=== PATIENT | male | born 2000 | race Caucasian/White ===

== ENCOUNTER 2020-07-25 19:22 | Emergency (ER) | payer OTHER, SELFPAY ==
--- NOTE | ~2020-07-25 | CT_ITS ---
EXAMINATION: CT ABDOMEN AND PELVIS WITH CONTRAST CLINICAL INFORMATION: Abdominal pain COMPARISON: None TECHNIQUE: Multidetector volumetric images were obtained from the superior aspect of the liver through the pubic symphysis following administration 85 mL of Omnipaque 350 intravenous contrast. Sagittal and coronal reformatted images were obtained on the technologist's workstation. Oral contrast: No This CT examination was performed using dose optimization techniques as appropriate, variously including the following: *Automated exposure control *Adjustment of mA and/or kV according to patient size (this includes techniques or standardized protocols for targeted exams where dose is matched to indication/reason for exam; i.e. extremities or head) *Use of iterative reconstruction technique DLP: 631 mGy-cm FINDINGS: LUNG BASES: The visualized lung bases are unremarkable. LIVER, GALLBLADDER, AND BILIARY TREE: The liver is mildly enlarged and 19 cm and demonstrates decreased attenuation consistent with hepatic steatosis. There are some areas of focal fatty sparing adjacent to the gallbladder.. No focal hepatic lesion or biliary ductal dilatation is present. The gallbladder is unremarkable with no evidence of radiopaque gallstones, gallbladder wall thickening, or obvious pericholecystic inflammatory changes. PANCREAS: Unremarkable. SPLEEN: Some splenic granulomas are present. ADRENAL GLANDS: Unremarkable. KIDNEYS AND URETERS: The kidneys are normal in size, shape, and attenuation. No hydronephrosis, hydroureter, or calculi seen. No perinephric stranding. BLADDER: Unremarkable. GASTROINTESTINAL TRACT: Some minimal diverticular changes are present without diverticulitis. The small and large bowel are unremarkable. The appendix is unremarkable. ABDOMINAL WALL: No significant hernia is appreciated. LYMPH NODES: No retroperitoneal lymphadenopathy. Small bilateral inguinal nodes are present. VASCULAR: Unremarkable. PELVIC VISCERA: Unremarkable. OSSEOUS STRUCTURES: Unremarkable. CT/CT abdomen pelvis w con IMPRESSION: 1. An etiology for the patient's abdominal pain has not been found. 2. Incidental note made of an enlarged fatty liver, splenic granulomas and colonic diverticulosis
[2020-07-25 19:53] VITALS: BP 119/61; PULSE 69; RESP 18; TEMP 36.9; O2SAT 97; BMI 29.9
[2020-07-25 20:47] LABS: MANUAL DIFF FLAG NO
[2020-07-25 20:49] LABS: Basophils Percent Auto 0.3 % (0-2); Eosinophils Absolute Auto 0.1 X10*3/uL (0.0-0.4); Eosinophils Percent Auto 0.4 % (0-4); Hematocrit 45.5 % (42-52); Hemoglobin 15.6 g/dl (14.0-18.0); Imm Gran Abs Auto 0.03 X10*3/uL (0.00-0.03); Imm Gran Pct Auto 0.3 % (0.0-0.4); Lymphocytes Absolute Auto 1.8 X10*3/uL (1.2-4.9); Lymphocytes Percent Auto 15.4 % (20-40); Mean Corpuscular HGB Conc 34.3 g/dl (31.0-36.0); Mean Corpuscular Hemoglobin 30.5 pg (27.0-33.0); Mean Corpuscular Volume 88.9 fL (80-98); Mean Platelet Volume 10.6 fL (9.4-12.4); Monocytes Absolute Auto 0.9 X10*3/uL (0.1-1.2); Monocytes Percent Auto 7.5 % (2-11); Neutrophils Absolute Auto 8.7 X10*3/uL (2.0-8.3); Neutrophils Percent Auto 76.1 % (45-73); Platelet Count 171 X10*3/uL (160-400); Red Blood Count 5.12 X10*6/uL (4.60-5.80); Red Cell Distribution Width 12.1 % (11.0-16.0); White Blood Count 11.5 X10*3/uL (4.8-10.8)
[2020-07-25 21:08] LABS: Alanine Aminotransferase 14 U/L (0-40); Albumin Level 4.8 g/dL (3.5-5.0); Alkaline Phosphatase 89 U/L (39-117); Anion Gap 15 (12-20); Aspartate Amino Transferase 24 U/L (5-37); Bilirubin Total 1.1 mg/dL (0.0-1.0); Blood Urea Nitrogen 7 mg/dL (9-16); Calcium 9.6 mg/dL (8.4-10.2); Carbon Dioxide 25 mmol/L (22-29); Chloride 102 mmol/L (96-108); Creatinine Clr Calc Pharmacy 114.9; Estimated Glomerular Filt Rate > 60; Glucose Random 85 mg/dL (60-115); Lipase 17 U/L (8-78); Potassium 3.5 mmol/L (3.3-5.1); Sodium 138 mmol/L (135-145); Total Protein 7.6 g/dL (6.5-8.0)
--- NOTE | 2020-07-25 23:05 | ED_ITS ---
HPI - General Adult General Chief complaint: General Medical Stated complaint: multiple complaints Time Seen by Provider: 07/25/20 23:05 Source: patient Mode of arrival: ambulatory Limitations: no limitations History of Present Illness HPI narrative: Otherwise healthy 20-year-old male who has had ongoing upper abdominal pain for past year and half to 2 years has increased over the past 3 days associated nausea and vomiting 1 episode of diarrhea. He was evaluated at [facility] Room 2 days ago had lab work done and was sent to GI his GI doctor evaluate him plan for CT scan of the abdomen pelvis and endoscopy however his pain worsened has not been sleeping. He does incur admit to heavy cannabis use however he stop this. Pain is described in the epigastric region burning-like and diffuse upper abdominal pain. He otherwise admits to occasional alcohol but no other drugs. No recent travel or sick contacts. No recent antibiotic use. No recent hospitalizations. Onset (ago): day(s) Radiation: non-radiation Severity: moderate Quality: aching Pain Consistency: intermittent Relieving factors: none Exacerbating factors: eating Associated symptoms: denies other symptoms Treatments prior to arrival: other (He was seen by GI in [place] given a PPI and Zofran for yesterday.) Related Data Previous Rx's Medication Instructions Recorded hydroxyzine HCl 25 mg PO BID PRN #14 tab 07/26/20 Allergies Allergy/AdvReac Type Severity Reaction Status Date / Time From Benadryl Allergy Unknown UNKNOWN Uncoded 12/09/19 17:29 Review of Systems Review of Systems: Constitutional: No Weight loss, No Fever, No Chills, No Night Sweats, No Fatigue, No Malaise ENT/Mouth: No Hearing loss, No Ear Pain, No Nasal Congestion, No Sinus Pain, No Hoarseness, No sore throat, No Rhinorrhea, No Swallowing Difficulty Eyes: No Eye Pain, No Swelling, No Redness, No Foreign Body, No Discharge, No Vision Changes Cardiovascular: No Chest Pain, No SOB, No Dyspnea on Exertion, No Orthopnea, No Edema, No Palpitations Respiratory: No Cough, No Sputum, No Wheezing, No Smoke Exposure, No Dyspnea Gastrointestinal: As noted per HPI, No Hematochezia, No Melena Genitourinary: No Dysuria, No Urinary Frequency, No Hematuria, No Urinary Incontinence, No Urgency, No Flank Pain, No Urinary Flow Changes, No Hesitancy Musculoskeletal: No joint pain, No Myalgias, No Joint Swelling Skin: No Skin Lesions, No rash Neuro: No Weakness, No Numbness, No Paresthesias, No Loss of Consciousness, No Dizziness, No Headache Psych: + Anxiety/Panic, No Depression, No SI/HI/AH/VH, No Social Issues, Heme/Lymph: No Bruising, No Bleeding,No Lymphadenopathy Endocrine: No Polyuria, No Polydipsia, No Temperature Intolerance Yes all other systems are reviewed and are negative [facility] Past Medical History Medical History (Updated 07/26/20 @ 02:37 by Brennan Shi NP) GERD (gastroesophageal reflux disease) IBS (irritable bowel syndrome) Social History Social History Advance Directives: No Advance Directives Information Provided: Yes Physical Exam Vital Signs: Vital Signs: Last Vital Signs Temp 98.5 F 07/25/20 19:53 Pulse 69 07/25/20 19:53 Resp 18 07/25/20 19:53 BP 119/61 07/25/20 19:53 Pulse Ox 97 07/25/20 19:53 Body Mass Index 29.9 Reviewed Const: General: cooperative, healthy appearing and anxious; No intoxicated appearing Nutritional Appearance: average body habitus Or ientation/consciousness: patient oriented x3 HENMT: Head: Yes normal to inspection Ears: hearing grossly normal bilaterally Eyes: General: appearance normal, both eyes and all related structures Visual Escobar: normal visual escobar by confrontation Neck: Neck: Yes normal visual inspection, No positive Brudzinski's sign, No positive Kernig's sign and No tender Thyroid: Thyroid normal Chest: Chest palpation & inspection: normal inspection of the chest Resp: Effort & Inspection: normal respiratory effort Auscultation: clear to auscultation bilaterally Cardio: Jugular venous distension: no JVD Rhythm: regular rhythm Heart sounds: S1 normal heart sound present and S2 normal heart sound present GI: Inspection: Yes normal to inspection Palpation (GI): Tenderness to palpation present (GI) in the epigastrum Percussion: Yes normal to percussion Auscultation: normal bowel sounds : General: Yes no CVA tenderness Back/Spine/Pelvis: Back: no CVA tenderness Skin: General skin exam: no rashes or lesions noted Neuro: General: patient oriented x3 Extrem: General: Yes normal to inspection Course Reevaluation(s) Reevaluation #1: More anxious appearing does admit to extensive cannabis use I s uspect component of cyclic vomiting and underlying reflux. He has requesting to have CT scan of the abdomen pelvis when she had the GI had planned but given his symptoms progressing he is worried. His exam is overall reassuring. Labs work is overall stable. CT of the abdomen pelvis without acute findings incidental findings were reviewed he feels much better after GI cocktail and Benadryl IV. I will send him home on hydroxyzine p.r.n. for anxiety. I told him to stop using marijuana. He will continue take his Zofran and PPI as prescribed with GI. Copy of his lab work and CT scan was given to him to take to his GI appointment. He feels better he reports and feels comfortable with discharge. Medical Decision Making Lab Data Result diagrams: 07/25/20 20:43 07/25/20 20:43 Labs: Lab Results 07/25/20 07/25/20 07/25/20 Range/Units 20:43 20:43 20:43 WBC 11.5 H (4.8-10.8) X10*3/uL RBC 5.12 (4.60-5.80) X10*6/uL Hgb 15.6 (14.0-18.0) g/dl Hct 45.5 (42-52) % MCV 88.9 (80-98) fL MCH 30.5 (27.0-33.0) pg MCHC 34.3 (31.0-36.0) g/dl RDW 12.1 (11.0-16.0) % Plt Count 171 (160-400) X10*3/uL MPV 10.6 (9.4-12.4) fL Immature Gran % (Auto) 0.3 (0.0-0.4) % Neut % (Auto) 76.1 H (45-73) % Lymph % (Auto) 15.4 L (20-40) % [place] % (Auto) 7.5 (2-11) % Eos % (Auto) 0.4 (0-4) % Baso % (Auto) 0.3 (0-2) % Lymph # (Auto) 1.8 (1.2-4.9) X10*3/uL [place] # (Auto) 0.9 (0.1-1.2) X10*3/uL Eos # (Auto) 0.1 (0.0-0.4) X10*3/uL Baso # (Auto) 0.0 (0.0-0.2) X10*3/uL Abs Immat Gran (auto) 0.03 (0.00-0.03) X10*3/uL Absolute Neuts (auto) 8.7 H (2.0-8.3) X10*3/uL Absolute Nucleated RBC 0.000 (0.0-0.012) X10*3/uL Nucleated RBC % (auto) 0.0 (0.0-0.2) /100WBC Hold Blue Top SEE NOTE Sodium 138 (135-145) mmol/L Potassium 3.5 (3.3-5.1) mmol/L Chloride 102 (96-108) mmol/L Carbon Dioxide 25 (22-29) mmol/L Anion Gap 15 (12-20) BUN 7 L (9-16) mg/dL Creatinine 1.21 (0.5-1.4) mg/dL Estim Creat Clear Calc 114.9 Estimated GFR > 60 Random Glucose 85 (60-115) mg/dL Calcium 9.6 (8.4-10.2) mg/dL Total Bilirubin 1.1 H (0.0-1.0) mg/dL AST 24 (5-37) U/L ALT 14 (0-40) U/L Alkaline Phosphatase 89 (39-117) U/L Total Protein 7.6 (6.5-8.0) g/dL Albumin 4.8 (3.5-5.0) g/dL Lipase 17 (8-78) U/L Imaging Data Abdominal/pelvis CT: Radiologist's impression: [address] [id number] Scan ReportSigned Patient: Junior Robertson#: [id number]: 2000Acct:[id number]/Sex: 20 / MADM Date: 07/25/20Loc: [address] Dr: Ordering Physician: Brennan Shi NP Date of Service: 07/26/20 Procedure(s): CT abdomen pelvis w con Accession Number(s): [id number] cc: Brennan Shi GLOBAL MOBILITY SPECIALIST~ EXAMINATION: CT ABDOMEN AND PELVIS WITH CONTRAST CLINICAL INFORMATION: Abdominal pain COMPARISON: None TECHNIQUE: Multidetector volumetric images were obtained from the superior aspect of the liver through the pubic symphysis following administration 85 mL of Omnipaque 350 intravenous contrast. Sagittal and coronal reformatted images were obtained on the technologist's workstation. Oral contrast: No This CT examination was performed using dose optimization techniques as appropriate, variously including the following: *Automated exposure control *Adjustment of mA and/or kV according to patient size (this includes techniques or standardized protocols for targeted exams where dose is matched to indication/reason for exam; i.e. extremities or head) *Use of iterative reconstruction technique DLP: 631 mGy-cm FINDINGS: LUNG BASES: The visualized lung bases are unremarkable. LIVER, GALLBLADDER, AND BILIARY TREE: The liver is mildly enlarged and 19 cm and demonstrates decreased attenuation consistent with hepatic steatosis. There are some areas of focal fatty sparing adjacent to the gallbladder.. No focal hepatic lesion or biliary ductal dilatation is present. The gallbladder is unremarkable with no evidence of radiopaque gallstones, gallbladder wall thickening, or obvious pericholecystic inflammatory changes. PANCREAS: Unremarkable. SPLEEN: Some splenic granulomas are present. ADRENAL GLANDS: Unremarkable. KIDNEYS AND URETERS: The kidneys are normal in size, shape, and attenuation. No hydronephrosis, hydroureter, or calculi seen. No perinephric stranding. BLADDER: Unremarkable. GASTROINTESTINAL TRACT: Some minimal diverticular changes are present without diverticulitis. The small and large bowel are unremarkable. The appendix is unremarkable. ABDOMINAL WALL: No significant hernia is appreciated. LYMPH NODES: No retroperitoneal lymphadenopathy. Small bilateral inguinal nodes are present. VASCULAR: Unremarkable. PELVIC VISCERA: Unremarkable. OSSEOUS STRUCTURES: Unremarkable. CT/CT abdomen pelvis w con IMPRESSION: 1. An etiology for the patient's abdominal pain has not been found. 2. Incidental note made of an enlarged fatty liver, splenic granulomas and colonic diverticulosis Dictated By:HAMMAD CABELLO MDSigned By:<Electronically signed by HAMMAD CABELLO MD in [place]>07/26/20 0052 DD/ 0025TD/TT: Retail Merchandiser: Discharge Plan Discharge Clinical Impression: Abdominal pain, acute, epigastric, Cyclical vomiting, Chronic gastroesophageal reflux disease Patient Disposition: Home, Self-Care Instructions: Diet for Stomach Ulcers and Gastritis (ED), Gastroesophageal Reflux Disease (ED), Cyclic Vomiting Syndrome (ED) Additional Instructions: Please follow dietary precautions provided Follow-up with GI doctor as discussed Return if any concerns or worsening symptoms Thank you Prescriptions: New hydroxyzine HCl 25 mg tablet 25 mg PO BID PRN (Reason: anxiety) Qty: 14 RF: 0 Referrals: Physician,Unknown [Primary Care Provider] - 2 days
[2020-07-26] MEDS: Magnesium Hydrox/Alum Hydrox 30 ML ORAL.SUSP PO (00:30)
[2020-07-26] MEDS: ondansetron HCL 4 MG/2 ML VIAL IVPUSH (00:30)
[2020-07-26] MEDS: Lidocaine HCl Viscous 2 % 15 ML SOLUTION 10 ML MUCOUS MEM (00:30)
[2020-07-26] MEDS: 0.9 % Sodium Chloride 1,000 ML 999 ML IV (00:30)
[2020-07-26] MEDS: diphenhydrAMINE HCL 50 MG/ML VIAL IVPUSH (00:30)
[2020-07-26] MEDS: iohexoL 350 MG/ML 100 ML INFUS..BTL 85 ML IV (00:39)
== END 2020-07-26 03:04 | disposition home or self-care (01) ==
PROVIDERS: Emergency Provider Internal Medicine
DX: R10.13 Epigastric pain (principal); R11.15 Cyclical vomiting syndrome unrelated to migraine; K21.9 Gastro-esophageal reflux disease without esophagitis
CPT/HCPCS: 36415; 74177; 80053; 83690; 85025; 96361; 96374; 96375; 99283; 99284; J1200; J2405; Q9967

== ENCOUNTER → 2022-01-03 11:00 | Outpatient (BNVA) | payer OTHER, SELFPAY | PROVIDERS: Visit Provider Internal Medicine | DX: S39.012A Strain of muscle, fascia and tendon of lower back, initial encounter (principal); S33.6XXA Sprain of sacroiliac joint, initial encounter; S39.011A Strain of muscle, fascia and tendon of abdomen, initial encounter; X50.0XXA Overexertion from strenuous movement or load, initial encounter | CPT/HCPCS: 99203 ==

== ENCOUNTER → 2022-01-31 13:16 | Outpatient (BNVA) | payer OTHER, SELFPAY | PROVIDERS: Visit Provider Physician Assistant | DX: M54.50 Low back pain, unspecified (principal); R10.30 Lower abdominal pain, unspecified | CPT/HCPCS: 99213 ==

== ENCOUNTER → 2022-02-13 14:34 | Outpatient (BNVA) | payer OTHER, SELFPAY | PROVIDERS: Visit Provider Physician Assistant | DX: S39.012D Strain of muscle, fascia and tendon of lower back, subsequent encounter (principal); S39.011D Strain of muscle, fascia and tendon of abdomen, subsequent encounter; X50.0XXD Overexertion from strenuous movement or load, subsequent encounter | CPT/HCPCS: 99213 ==